=== PATIENT | female | born 1985 | race African-American/Black ===

== ENCOUNTER 2016-08-24 06:10 | Inpatient (IN) | payer OTHER ==
[2016-08-24] MEDS ORDERED: BUTORPHANOL TARTRATE 1 MG/ML VIAL IVPB ONE (07:15)
[2016-08-24] MEDS: ELECTROLYTE-148 SOLN 1,000 ML IV SCH ×3 (07:30→15:30)
[2016-08-24 08:32] VITALS: BMI 39.6
--- NOTE | 2016-08-24 08:40 | HP ---
Past Medical History - Primary Care Physician PCP:: John Moss - Admission Chief Complaint: 38.2 weeks, previous c/s ,labor, request of History of Present Illness: 30 yo f edc by sono 09/04/16 38.3 weeks, c/o contraction since 3 am, no rom, no bleeding ,cx 4 cm 80 vx -1 mi, fhr cat 1, contraction q 3 min , wants , risk of ruptured uterus , and maternal complication discussed with patient, repeat c/s also explained, declined repeat c/s, fully aware of all risks of , last sono growth 10% marginal cord insertion History Source: Patient Limitations to Obtaining History: No Limitations - Past Medical History Reproductive: Yes: Ectopic ...: 4 ...Para: 1 ...Term: 1 ...: 0 ...Spon : 1 ...Induced : 1 ...Multiple Gestation: 0 ...LMP: 11/29/15 ... Weeks Gestation by Dates: 38.2 ...EDC by Dates: 09/05/16 ...EDC by Sono: 09/04/16 - Past Surgical History Past Surgical History: Yes: Hx Myomectomy: No Hx Transabdominal Cerclage: No - Smoking History Smoking history: Never smoked Have you smoked in the past 12 months: No - Alcohol/Substance Use Hx Alcohol Use: No History of Substance Use: reports: None - Social History History of Recent Travel: No Home Medications - Allergies Allergies/Adverse Reactions: Allergies Allergy/AdvReac Type Severity Reaction Status Date / Time No Known Allergies Allergy Verified 08/24/16 07:37 - Home Medications Home Medications: Ambulatory Orders Pnv with Ca,No.72/Iron/FA [ Plus Tablet] 1 tab PO DAILY 08/18/16 Review of Systems - Review of Systems Constitutional: reports: No Symptoms Eyes: reports: No Symptoms HENT: reports: No Symptoms Neck: reports: No Symptoms Cardiovascular: reports: No Symptoms Respiratory: reports: No Symptoms Gastrointestinal: reports: Abdominal Pain Genitourinary: reports: Frequency Breasts: reports: No Symptoms Reported Musculoskeletal: reports: No Symptoms Integumentary: reports: No Symptoms Neurological: reports: No Symptoms Endocrine: reports: No Symptoms Hematology/Lymphatic: reports: No Symptoms Psychiatric: reports: No Symptoms Physical Exam - Maternity Vital Signs: Vital Signs Temperature 97.7 F 08/24/16 08:00 Pulse Rate 64 08/24/16 08:00 Respiratory Rate 20 08/24/16 08:00 Blood Pressure 127/61 08/24/16 08:00 O2 Sat by Pulse Oximetry (%) Constitutional: Yes: Well Nourished, No Distress, Calm Eyes: Yes: WNL, Conjunctiva Clear, EOM Intact HENT: Yes: WNL, Atraumatic, Normocephalic Neck: Yes: WNL, Supple, Trachea Midline Cardiovascular: Yes: WNL, Regular Rate and Rhythm Breast(s): Yes: WNL - Abdominal Exam/OB Fundal Height: 38 Number of Fetuses: Single Presentation: Vertex Contractions: Yes Regularity: Regular Intensity: Mod/Strong Monitor Mode: External Heart Rate Location: [facility] Category: I Accelerations: Uniform Decelerations: None - Vaginal Exam/OB Vaginal Bleediing: No Speculum Exam: No Dilatation (cm): 4 cm Effacement (%): 80 Amniotic Membrane Status: Intact Presentation: Vertex/Position Station: -1 - Physical Exam Musculoskeletal: Yes: WNL Edema: Yes Edema: LLE: Trace, RLE: Trace Deep Tendon Reflex Grade: Normal +2 Hemorrhage Risk Assessment - Risk Factors Medium Risk Factors: Yes: Prior , uterine surgery,or multiple laparotomies Risk Score: 1 Risk Level: Medium Risk Problem List - Problems (1) with 38 completed weeks gestation Code(s): Z3A.38 - 38 WEEKS GESTATION OF (2) Previous delivery affecting Code(s): O34.219 - MATERNAL CARE FOR UNSP TYPE SCAR FROM PREVIOUS DEL (3) Labor established Code(s): DWQ3557 - (4) Obesity Code(s): E66.9 - OBESITY, UNSPECIFIED Qualifiers: Obesity type: due to excess calories Assessment/Plan plan admit, heart monitoring, pain management, aware risks of ,
[2016-08-24 08:55] LABS: BASOPHIL 0.4 % (0-2.0); EOSINOPHIL 0.1 % (0-4.5); MCH 29.9 pg (25.7-33.7); MCHC 33.4 g/dl (32.0-36.0); MEAN CELL VOLUME 89.5 fl (80-96); MEAN PLT VOLUME 10.5 fl (7.5-11.1); NEUTROPHILS 67.2 % (42.8-82.8); PLATELET COUNT 181 K/MM3 (134-434); RDW 13.3 % (11.6-15.6); WHITE BLOOD COUNT 8.5 K/mm3 (4.0-10.0)
[2016-08-24 09:14] LABS: CALCIUM 8.1 mg/dL (8.5-10.1); COCKROFT - GAULT 206.159; CREATININE 0.6 mg/dL (0.55-1.02)
[2016-08-24 09:31] LABS: INR 0.95 (0.82-1.09); PROTHROMBIN TIME (PATIENT) 10.4 SEC (9.98-11.88)
[2016-08-24 09:33] LABS: ACTIVATED PTT 26.4 SECONDS (26.9-34.4)
[2016-08-24] MEDS ORDERED: FENTANYL/BUPIVACAINE/NS/PF - PCEA - 50 ML DISP.SYRIN EP SCH (10:30)
--- NOTE | 2016-08-24 12:35 | PN ---
Progress Note (short form) - Note Progress Note: cx 5 cm, 100 vx 0 mi, fhr cat 1, contraction q 3 min, has epidural . comfortable Problem List - Problems (1) with 38 completed weeks gestation Code(s): Z3A.38 - 38 WEEKS GESTATION OF (2) Previous delivery affecting Code(s): O34.219 - MATERNAL CARE FOR UNSP TYPE SCAR FROM PREVIOUS DEL (3) Labor established Code(s): HMM5383 - (4) Obesity Code(s): E66.9 - OBESITY, UNSPECIFIED Qualifiers: Obesity type: due to excess calories
[2016-08-24 20:20] LABS: ARTERIAL BLD GAS O2 SATURATION 24.9 % (90-98.9); ARTERIAL BLOOD GAS BASE EXCESS -6.7 meq/l (-2-2); ARTERIAL BLOOD GAS HCO3 22.4 meq/L (22-26); ARTERIAL BLOOD GAS PO2 19.5 mmHg (80-100)
[2016-08-24 20:25] LABS: ARTERIAL BLOOD GAS pH 7.19 (7.35-7.45)
[2016-08-24] MEDS ORDERED: METHYLERGONOVINE MALEATE 0.2 MG/1 ML AMP IM PRN (20:25)
[2016-08-24] MEDS ORDERED: BENZOCAINE 28 GM HEMORRHOIDAL OINTMENT TP PRN (20:25)
[2016-08-24] MEDS ORDERED: WITCH HAZEL 50% (TUCKS) 40 PAD/JAR PAD TP PRN (20:25)
[2016-08-24] MEDS ORDERED: oxyCODONE HCL 5 MG TABLET PO PRN (20:25)
[2016-08-24] MEDS ORDERED: BENZOCAINE 20% 57 GM BOTTLE TP PRN (20:25)
[2016-08-24] MEDS ORDERED: BISACODYL 10 MG SUPP.RECT RC PRN (20:25)
[2016-08-24] MEDS ORDERED: D5W-LR W/ 20 UNITS OXYTOCIN 1,000 ML IV SCH (20:30)
[2016-08-24 20:33] LABS: ARTERIAL BLOOD GAS pH 7.31 (7.35-7.45)
[2016-08-24 20:34] LABS: ARTERIAL BLD GAS O2 SATURATION 75.4 % (90-98.9); ARTERIAL BLOOD GAS HCO3 18.2 meq/L (22-26)
[2016-08-24 20:35] LABS: ARTERIAL BLOOD GAS PO2 40.4 mmHg (80-100)
[2016-08-25] MEDS: FERROUS SO4 325 MG TABLET (FP) PO SCH ×3 (01:50→22:50)
[2016-08-25] MEDS: ACETAMINOPHEN 325 MG TABLET (FP) PO PRN ×3 (02:18→20:54)
[2016-08-25] MEDS: IBUPROFEN 600 MG TABLET (FP) PO PRN ×3 (02:22→20:54)
[2016-08-25 08:21] LABS: BASOPHIL 0.2 % (0-2.0); EOSINOPHIL 0.1 % (0-4.5); MCH 29.8 pg (25.7-33.7); MCHC 33.1 g/dl (32.0-36.0); MEAN CELL VOLUME 90.1 fl (80-96); MEAN PLT VOLUME 11.4 fl (7.5-11.1); NEUTROPHILS 70.8 % (42.8-82.8); PLATELET COUNT 154 K/MM3 (134-434); RDW 13.2 % (11.6-15.6); WHITE BLOOD COUNT 14.3 K/mm3 (4.0-10.0)
--- NOTE | 2016-08-25 09:13 | PN ---
Progress Note (short form) - Note Progress Note: ppd 1 doing well, no excess vaginal; bleeding Last Vital Signs Temp Pulse Resp BP Pulse Ox 98.3 F 72 20 130/67 99 08/25/16 07:56 08/25/16 07:56 08/25/16 07:56 08/25/16 07:56 08/24/16 21:00 Last Vital Signs Temp Pulse Resp BP Pulse Ox 98.3 F 72 20 130/67 99 08/25/16 07:56 08/25/16 07:56 08/25/16 07:56 08/25/16 07:56 08/24/16 21:00 abdomen soft, uterus firm lochia mild no calf tenderness plan cbc . ambulate Problem List - Problems (1) with 38 completed weeks gestation Code(s): Z3A.38 - 38 WEEKS GESTATION OF (2) Previous delivery affecting Code(s): O34.219 - MATERNAL CARE FOR UNSP TYPE SCAR FROM PREVIOUS DEL (3) Labor established Code(s): PVD5794 - (4) Obesity Code(s): E66.9 - OBESITY, UNSPECIFIED Qualifiers: Obesity type: due to excess calories
[2016-08-25] MEDS: PRENATAL VITAMINS W/ FOLIC ACID TABLET (FP) PO SCH (09:16)
--- NOTE | 2016-08-25 09:55 | PN ---
Post Progress Note - Subjective Subjective: no c/o cramps Post Day: 1 Type of Delivery: Vital Signs: Vital Signs Temperature 98.3 F 08/25/16 07:56 Pulse Rate 72 08/25/16 07:56 Respiratory Rate 20 08/25/16 07:56 Blood Pressure 130/67 08/25/16 07:56 O2 Sat by Pulse Oximetry (%) 99 08/24/16 21:00 Breast Exam: Yes: Soft, Other (BF). No: Engorged Uterus: Yes: Fundus Firm, Fundus below umbilicus, Non-tender Lochia: Yes: Rubra Lochia, amount: Moderate Extremities: Yes: Calves non-tender Perineum: Yes: Episiotomy (c/o perineal soreness) Activity: Ambulating - Labs Labs: CBC WBC 14.3 K/mm3 (4.0-10.0) H D 08/25/16 07:30 RBC 3.66 M/mm3 (3.60-5.2) 08/25/16 07:30 Hgb 10.9 GM/dL (10.7-15.3) D 08/25/16 07:30 Hct 33.0 % (32.4-45.2) 08/25/16 07:30 MCV 90.1 fl (80-96) 08/25/16 07:30 MCHC 33.1 g/dl (32.0-36.0) 08/25/16 07:30 RDW 13.2 % (11.6-15.6) 08/25/16 07:30 Plt Count 154 K/MM3 (134-434) 08/25/16 07:30 MPV 11.4 fl (7.5-11.1) H 08/25/16 07:30 Neutrophils % 70.8 % (42.8-82.8) 08/25/16 07:30 Lymphocytes % 21.8 % (8-40) 08/25/16 07:30 Monocytes % 7.1 % (3.8-10.2) 08/25/16 07:30 Eosinophils % 0.1 % (0-4.5) 08/25/16 07:30 Basophils % 0.2 % (0-2.0) 08/25/16 07:30 Assessment/Plan stable. plan ct pp care. discharge tomorrow.
[2016-08-25] MEDS ORDERED: SENNOSIDES/DOCUSATE COMBO (SENNA PLUS) TABLET (UD) PO PRN (22:00)
[2016-08-26] MEDS: IBUPROFEN 600 MG TABLET (FP) PO PRN (05:58)
[2016-08-26] MEDS: ACETAMINOPHEN 325 MG TABLET (FP) PO PRN (05:58)
--- NOTE | 2016-08-26 06:48 | PN ---
Post Progress Note Post Day: 2 Type of Delivery: Vital Signs: Vital Signs Temperature 97.8 F 08/25/16 21:18 Pulse Rate 73 08/25/16 21:18 Respiratory Rate 18 08/25/16 21:18 Blood Pressure 135/75 08/25/16 21:18 O2 Sat by Pulse Oximetry (%) 99 08/24/16 21:00 Breast Exam: Yes: Soft Uterus: Yes: Fundus Firm Incision: Yes: Dressing dry and intact Abdomen/GI: Yes: Abdomen soft Lochia: Yes: Rubra Lochia, amount: Small Extremities: Yes: Calves non-tender Perineum: Yes: Intact Activity: Ambulating - Labs Labs: CBC WBC 14.3 K/mm3 (4.0-10.0) H D 08/25/16 07:30 RBC 3.66 M/mm3 (3.60-5.2) 08/25/16 07:30 Hgb 10.9 GM/dL (10.7-15.3) D 08/25/16 07:30 Hct 33.0 % (32.4-45.2) 08/25/16 07:30 MCV 90.1 fl (80-96) 08/25/16 07:30 MCHC 33.1 g/dl (32.0-36.0) 08/25/16 07:30 RDW 13.2 % (11.6-15.6) 08/25/16 07:30 Plt Count 154 K/MM3 (134-434) 08/25/16 07:30 MPV 11.4 fl (7.5-11.1) H 08/25/16 07:30 Neutrophils % 70.8 % (42.8-82.8) 08/25/16 07:30 Lymphocytes % 21.8 % (8-40) 08/25/16 07:30 Monocytes % 7.1 % (3.8-10.2) 08/25/16 07:30 Eosinophils % 0.1 % (0-4.5) 08/25/16 07:30 Basophils % 0.2 % (0-2.0) 08/25/16 07:30 Assessment/Plan as above oob dc home today
[2016-08-26 07:39] VITALS: BP 122/73; PULSE 66; TEMP 98.4
[2016-08-26] MEDS: FERROUS SO4 325 MG TABLET (FP) PO SCH (09:27)
[2016-08-26] MEDS: PRENATAL VITAMINS W/ FOLIC ACID TABLET (FP) PO SCH (09:27)
[2016-09-08 11:44] LABS: ART PUNCT SITE OTHER; PT. ON O2? NO
[2016-09-08 11:45] LABS: ART PUNCT SITE OTHER; PT. ON O2? NO
== END 2016-08-26 10:45 | disposition home or self-care (01) | DRG 560 ==
LOC: JDEL 06:10 → JLDR 07:15 → J3W 22:00
PROVIDERS: ADMIT Obstetrics & Gynecology; ATTEND Obstetrics & Gynecology
PROC: 10E0XZZ Delivery of Products of Conception, External Approach (ICD-10-PCS; principal; 2016-08-24)
PROC: 0W8NXZZ Division of Female Perineum, External Approach (ICD-10-PCS; 2016-08-24)
DX: O34.211 Maternal care for low transverse scar from previous cesarean delivery (principal); N85.8 Other specified noninflammatory disorders of uterus; O99.214 Obesity complicating childbirth; Z3A.38 38 weeks gestation of pregnancy; Z68.39 Body mass index [BMI] 39.0-39.9, adult; Z37.0 Single live birth
CPT/HCPCS: 36415; 36600; 59409; 80048; 82803; 85025; 85610; 85730; 86593; 86850; 86900; 86901